=== PATIENT | male | born 1950 | race Caucasian/White ===

== ENCOUNTER 2017-06-14 06:21 | Observation (INO) | payer SELFPAY ==
[2017-06-14] MEDS ORDERED: NS 1,000 ML IV ONE (06:28)
[2017-06-14] MEDS ORDERED: ASPIRIN 81 MG CHEWABLE TAB PO ONE (06:28)
[2017-06-14] MEDS ORDERED: NITROGLYCERIN 0.4 MG BTL SL ONE (06:33)
--- NOTE | 2017-06-14 06:34 | EDPHY ---
H & P Stated Complaint: Left sided CP and shoulder pain since 529 HPI/ROS: HPI CHIEF COMPLAINT: Left shoulder pain, chest pain HISTORY OF PRESENT ILLNESS: This patient is otherwise healthy 67-year-old male he tells me does not take any daily medications and has no significant medical history. He does not see doctors regularly. Presents emergency room by private vehicle with chest discomfort in left shoulder pain. States approximately an hour ago he woke up with pain in his left shoulder and radiated into his chest. States since then the shoulder pain has resolved however he continues to have chest pain in the center of his chest he feels a tightness. Or feeling as if something sitting there. It does go up to his neck. No jaw pain. Denies any nausea vomiting diaphoresis. Denies shortness of breath. He does state when he takes deep breath in it does hurt. No abdominal pain. No back pain. No arm pain. No numbness or tingling or focal weakness. No headache. Past Medical History: No significant medical history Past Surgical History: No significant surgical history Social History: Denies daily use of drugs alcohol tobacco. Lives locally. 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 Family History: Noncontributory ROS REVIEW OF SYSTEMS: A comprehensive 10 point review of systems is otherwise negative aside from elements mentioned in the history of present illness. Exam Constitutional appears well nontoxic, triage nursing summary reviewed, vital signs reviewed, awake/alert. Eyes normal conjunctivae and sclera, EOMI, PERRLA. HENT normal inspection, atraumatic, moist mucus membranes, no epistaxis, neck supple/ no meningismus, no raccoon eyes. Respiratory clear to auscultation bilaterally, normal breath sounds, no respiratory distress, no wheezing. Cardiovascular rate normal, regular rhythm, no murmur, no edema, distal pulses normal. Gastrointestinal soft, non-tender, no rebound, no guarding, normal bowel sounds, no distension, no pulsatile mass. Genitourinary no CVA tenderness. Musculoskeletal no midline vertebral tenderness, full range of motion, no calf swelling, no tenderness of extremities, no meningismus, good pulses, neurovascularly intact. Skin pink, warm, & dry, no rash, skin atraumatic. Neurologic awake, alert and oriented x 3, AAOx3, moves all 4 extremities equally, motor intact, sensory intact, CN II-XII intact, normal cerebellar, normal vision, normal speech. Psychiatric normal mood/affect. Heme/Lymph/Immune no lymphadenopathy. Differential diagnosis includes but is not limited to: ACS, atypical chest pain , pneumothorax, pneumonia, pulmonary embolism, aortic dissection, congestive heart failure, tumor, musculoskeletal pain, esophageal pain, GERD, peptic ulcer disease, pancreatitis Medical Decision Making: Plan for this patient IV establishment, full slitter scorer cut off operator, obtain troponin, EKG to rule out acute coronary syndrome, full-dose aspirin will be given nitroglycerin will be given IV fluids chest x-ray. Re-evaluation: EKG interpretation by me on record in [facility] system. Impression time of EKG 6:35 a.m., this shows sinus rhythm rate of 54, this borderline ST elevation inferior leads to 3 AVF 1 mm of elevation. In lead aVL there is T-wave inversion with flattening. Given this patient's EKG findings. And ongoing chest pain I will make him [place] cardiac [place]. [address]AM: I have talked to Dr. Thomas with Cardiology. Plan will be for Dr. Thomas to see and evaluate the patient most likely bring the patient to laborer shellfish processing for cardiac catheterization station. The reason why made this a STEMI alert is his EKG shows very subtle ST elevation inferior leads I do not appreciate any significant reciprocal changes however patient has a good story for chest pain. Pressure dull ache in the center of his chest woke him from sleep an hour ago. Given his story and clinical picture I feel it is reasonable to activate the cardiac catheterization lab for this patient. 0648: At this time this patient is hemodynamically stable he is having ongoing chest pain I have ordered an full-dose aspirin and nitroglycerin. 0654AM: Patient was given nitroglycerin. This did improve his chest pain however he still has ongoing chest discomfort. Will repeat his EKG at this time. laborer shellfish processing activated. Dr. Thomas with Cardiology has been notified. Source: Patient - Personal History Current Tetanus/Diphtheria Vaccine: Unsure Current Tetanus Diphtheria and Acellular Pertussis (TDAP): Unsure - Medical/Surgical History Hx Asthma: No Hx Chronic Respiratory Disease: No Hx Diabetes: No Hx Cardiac Disease: No Hx Renal Disease: No Hx Cirrhosis: No Hx Alcoholism: No Hx HIV/AIDS: No Hx Splenectomy or Spleen Trauma: No Other PMH: denies - Social History Smoking Status: Former smoker Constitutional: Initial Vital Signs Temperature (C) 36.7 C 06/14/17 06:22 Heart Rate 58 L 06/14/17 06:22 Respiratory Rate 16 06/14/17 06:22 Blood Pressure 105/55 L 06/14/17 06:22 O2 Sat (%) 98 06/14/17 06:22 O2 Delivery Mode Room Air Allergies/Adverse Reactions: No Known Allergies Allergy (Unverified 06/14/17 06:26) Home Medications: Medication Instructions Recorded Herbals/Supplements -Info Only 1 ea PO AD 06/14/17 Medical Decision Making - Data Points Laboratory Results: Laboratory Results 06/14/17 06:39 06/14/17 06:39 Medications Given: Discontinued Medications Aspirin (Aspirin) 324 mg PO EDNOW ONE Stop: 06/14/17 06:29 Last Admin: 06/14/17 06:41 Dose: 324 mg Sodium Chloride (Ns) 1,000 mls @ 0 mls/hr IV EDNOW ONE; Wide Open PRN Reason: Protocol Stop: 06/14/17 06:29 Last Admin: 06/14/17 06:45 Dose: 1,000 mls Sodium Chloride (Ns) 1,000 mls @ 100 mls/hr IV CONT JAMES Stop: 06/14/17 18:29 Last Admin: 06/14/17 09:56 Dose: Not Given Nitroglycerin (Nitrostat) 0.4 mg SL EDNOW ONE Stop: 06/14/17 06:34 Last Admin: 06/14/17 06:42 Dose: 0.4 mg Pneumococcal 13-Valent Conj Vacc (Prevnar 13 Syringe) 0.5 ml IM .ONCE ONE Stop: 06/14/17 12:23 Last Admin: 06/14/17 13:04 Dose: 0.5 ml Departure - Departure Disposition: [facility] Inpatient Acute Clinical Impression: Chest pain Qualifiers: Chest pain type: unspecified Qualified Code(s): R07.9 - Chest pain, unspecified Condition: Good
--- NOTE | 2017-06-14 06:37 | CPEKG ---
Heart Rate: 54 RR Interval: 1111 P-R Interval: 132 QRSD Interval: 88 QT Interval: 412 QTC Interval: 391 P [place]: -10 QRS [place]: 45 T Wave [place]: 63 EKG Severity - BORDERLINE ECG - EKG Impression: SINUS RHYTHM EKG Impression: BORDERLINE ST ELEVATION, INFERIOR LEADS Electronically Signed By: Marbella Donis 14-Jun-2017 16:21:57
[2017-06-14 06:50] LABS: % IMMATURE GRANULYOCYTES 0.2 % (0.0-1.1); ABSOLUTE IMMATURE GRANULOCYTES 0.02 10^3/uL (0.00-0.10); ADD DIFF? NO; ADD MORPH? NO; ADD SCAN? NO; ATYPICAL LYMPHOCYTE FLAG 0 (0-99); FRAGMENT RBC FLAG 0 (0-99); HEMATOCRIT 44.4 % (40.0-51.0); HEMOGLOBIN 15.1 g/dL (13.7-17.5); LEFT SHIFT FLG 0 (0-99); LIPEMIA HEMOLYSIS FLAG 90 (0-99); MEAN CELL HEMOGLOBIN 33.2 pg (27.9-34.1); MEAN CELL VOLUME 97.6 fL (81.5-99.8); MEAN PLATELET VOLUME 9.9 fL (8.7-11.7); PLATELET CLUMPS FLAG 0 (0-99); PLATELET COUNT 190 10^3/uL (150-400); RED BLOOD CELL COUNT 4.55 10^6/uL (4.40-6.38)
[2017-06-14 07:01] LABS: ANION GAP 13 mEq/L (8-16); CALCIUM 9.7 mg/dL (8.5-10.4); CARBON DIOXIDE 27 mEq/l (22-31); CHLORIDE 104 mEq/L (97-110); CREATININE 0.9 mg/dL (0.7-1.3); GLOMERULAR FILTRATION RATE > 60; GLUCOSE 89 mg/dL (70-100); POTASSIUM 3.9 mEq/L (3.5-5.2); SODIUM 144 mEq/L (134-144)
--- NOTE | 2017-06-14 07:02 | CPEKG ---
Heart Rate: 56 RR Interval: 1071 P-R Interval: 137 QRSD Interval: 92 QT Interval: 424 QTC Interval: 410 P [place]: -15 QRS [place]: 20 T Wave [place]: 56 EKG Severity - NORMAL ECG - EKG Impression: SINUS RHYTHM Electronically Signed By: Marbella Donis 14-Jun-2017 16:21:50
[2017-06-14 07:13] LABS: CK-MB INTERPRETATION NEGATIVE (NEGATIVE); CREATINE KINASE-MB FRACTION 1.37 ng/mL (0.00-3.19); TROPONIN I < 0.012 ng/mL (0.000-0.034)
[2017-06-14] MEDS ORDERED: fentaNYL 100 MCG/2 ML INJ ONE (07:13)
[2017-06-14] MEDS ORDERED: MIDAZOLAM 2 MG/2 ML VIAL ONE (07:13)
[2017-06-14] MEDS ORDERED: LIDOCAINE 1% 300 MG/30 ML SDV ONE (07:13)
[2017-06-14] MEDS ORDERED: IOPAMIDOL (ISOVUE-370) 150 ML BTL IV ONE (07:14)
--- NOTE | 2017-06-14 08:08 | GHP ---
[f rep st] HISTORY AND PHYSICAL DATE OF ADMISSION: 06/14/2017 REASON FOR ADMISSION: Possible inferior ST-segment elevation myocardial infarction. HISTORY: The patient is a 67-year-old male with essentially no prior medical history. This morning, he awoke with significant chest discomfort radiating into the left shoulder. It felt like a heavy pressure. There was no associated nausea, diaphoresis, or shortness of breath. His pain persisted for over an hour, and he ultimately decided to seek evaluation in the emergency room. In the emergency room his initial ECG demonstrates minimal inferior ST-segment elevation. He continues to have chest pres sure particularly with deep inspiration. PAST MEDICAL HISTORY: Essentially negative. He has no major ongoing health issues. He has no hist ory of prior surgery. MEDICATIONS: No regular medications. ALLERGIES: No known drug allergies. FAMILY HISTORY: Noncontributory. SOCIAL HISTORY: He is . He has an adult son who lives in [place]. 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 He smoked from his teenage years until his early 30s. Alcohol consumption is minimal. He has been trying to work on his exercise habits and hiked 7 miles yesterday. REVIEW OF SYSTEMS: Apart from the chest discomfort, which prompted this hospital encounter, a 10-po int review was negative. PHYSICAL EXAMINATION: VITAL SIGNS: Heart rate in the 50s with normal sinus rhythm on the monitor. Blood pressure 132/68. GENERAL: Well developed, well nourished, lean middle-age male, in no acute distress. He is alert and oriented x3. HEAD AND NECK: No scleral icterus. Mucous membranes mois t. Carotid pulses 2+ without bruits. There is no JVD. CHEST: Lung ji clear to auscultation. CARDIAC: Regular rate and rhythm with normal S1, S2. There is no murmur or gallop. ABDOMEN: Sof t, nontender, nondistended with normal bowel sounds. EXTREMITIES: 2+ pulses and no lower extremity edema. His Cedric test on the right wrist is abnormal. LABORATORY STUDIES: Pending at the time of this dictation. IMPRESSION: This is a 67-year-old male, who presents with chest discomfort with, which does have fe atures consistent with new onset unstable angina. His ECG is mildly abnormal with some J-point elev ation in the inferior leads. PLAN: Preparations are underway to take the patient to the cardiac laborer/key man for diagnostic angiogra phy and possible PCI. Further diagnostic and therapeutic decisions await the outcome of that study. /[id number]/MODL
[2017-06-14] MEDS ORDERED: ACETAMINOPHEN 325 MG TAB PO PRN (08:25)
[2017-06-14] MEDS ORDERED: ONDANSETRON 4 MG/2 ML VIAL IVP PRN (08:25)
[2017-06-14] MEDS ORDERED: ATROPINE SULFATE 1 MG/10 ML SYR IVP PRN (08:25)
[2017-06-14] MEDS ORDERED: HYDROCODONE/APAP 5/325 TAB PO PRN (08:25)
[2017-06-14] MEDS ORDERED: NS 1,000 ML IV SCH (08:30)
--- NOTE | 2017-06-14 08:41 | PDDXCAT ---
Diagnostic Cath Note - . Date: 06/14/17 Lab Associate: William Indication: other (Chest pain and abnormal ECG (cardiac alert)) - Procedure Access: right groin Procedure: left heart catheterization, coronary angiography, left ventriculogram - Materials Left Heart Cath size: 6F Left Heart Cath materials: standard multipack (JL4, JR4, pigtail) - Findings-Left Heart Catheterization LM: Angiographically normal. LAD: Angiographically normal. LCX: Angiographically normal. RCA: Angiographically normal. EDP: 24 mmHg LVEF: 60% Wall motion: Normal Complications: None Estimated blood loss: <50ml Closure method: Angioseal Assessment: 1) Normal LV systolic function. 2) Angiographically normal coronary arteries. Patient Problems: Problems Problem Status Onset Chest pain Acute
[2017-06-14 08:48] LABS: HEMATOCRIT 43.9 % (40.0-51.0)
[2017-06-14 08:57] LABS: C-REACTIVE PROTEIN < 5.0 mg/L (<10.0); CHOLESTEROL 218 mg/dL (140-220); CHOLESTEROL/HDL RATIO 3.89 RATIO (1.00-4.97); HIGH DENSITY LIPOPROTEIN 56 mg/dL (40-65); LDL/HDL RATIO 2.63 RATIO (1.00-3.64); LOW DENSITY LIPOPROTEIN 147 mg/dL (80-100); NON-HIGH DENSITY LIPOPROTEIN 162 mg/dL (90-129); TRIGLYCERIDE 78 mg/dL (40-150); VERY LOW DENSITY LIPOPROTEINS 15 mg/dL (8-25)
[2017-06-14 10:41] VITALS: RESP 13; TEMP 98.4; O2SAT 95
[2017-06-14 12:06] VITALS: BP 106/64; PULSE 57
[2017-06-14] MEDS ORDERED: PNEUMOC 13-VAL CONJ-DIP CRM/PF 0.5 ML SYR IM ONE (12:22)
--- NOTE | 2017-06-14 14:34 | GDS ---
[f rep st] DISCHARGE SUMMARY HOSPITAL COURSE: Please refer to my previously dictated history and physical and cardiac catheteriz ation report. Briefly, the patient is a 67-year-old male with no significant medical history, who p resented to the emergency room this morning with onset of left chest and shoulder discomfort. In th e emergency room, his initial troponin was normal; however, his ECG suggested minimal inferior ST-se gment elevation. He had ongoing chest tightness; therefore, he was taken to the cardiac woodworking shop laborer wh ere he was found to have normal left ventricular systolic function and angiographically normal coron lynda arteries. Following his catheterization, additional testing was performed to rule out other segundo rces for chest pain. A D-dimer was normal at 0.31. A 2nd troponin level several hours later was al so normal at less than 0.012. A sedimentation rate was normal at 6, and a CRP level was normal at l ess than 5.0. I checked in with the patient approximately 8 hours after his admission, and he was comfortable with no ongoing symptoms. At this point, he is stable for discharge. The lipid panel was checked and r evealed a total cholesterol of 218 with HDL 56, LDL 147, and triglyceride 78. Although his LDL is s omewhat elevated, he has angiographically normal coronary arteries and no other cardiovascular risk factors. Therefore, I do not feel that statin therapy is warranted. DISPOSITION AND RECOMMENDATIONS: The patient is discharged in stable condition. He should try Tyle nol or nonsteroidal anti-inflammatory medications if he has recurrent symptoms. Alternatively, he c ould try something directed at a gastrointestinal source, although this seems less likely as an etio logy. He should continue with heart healthy exercise and dietary habits. At this point, I suspect that his ECG simply represents early repolarization. DISCHARGE DIAGNOSES: 1. Chest pain of undetermined etiology. 2. Abnormal ECG. 3. Mild hyperlipidemia. /[id number]/MODL
== END 2017-06-14 14:41 | disposition home or self-care (01) ==
LOC: INTOOBSV 06:48 → F2N 09:14 → F2W 10:30
PROVIDERS: ADMIT Internal Medicine Interventional Cardiology; ATTEND Internal Medicine Interventional Cardiology
PROC: 4A023N7 Measurement of Cardiac Sampling and Pressure, Left Heart, Percutaneous Approach (ICD-10-PCS; principal; 2017-06-14 08:20)
PROC: B2111ZZ Fluoroscopy of Multiple Coronary Arteries using Low Osmolar Contrast (ICD-10-PCS; principal; 2017-06-14 08:20)
PROC: B2151ZZ Fluoroscopy of Left Heart using Low Osmolar Contrast (ICD-10-PCS; principal; 2017-06-14 08:20)
DX: R07.9 Chest pain, unspecified (principal); R94.31 Abnormal electrocardiogram [ECG] [EKG]; E78.5 Hyperlipidemia, unspecified; Z87.891 Personal history of nicotine dependence; Z23 Encounter for immunization
CPT/HCPCS: C1760; G0009; J1644; J2250; J3010; Q9967